=== PATIENT | male | born 1985 | race Caucasian/White ===

== ENCOUNTER 2017-12-29 20:30 | Outpatient (CLI) | payer BC | END 2017-12-29 20:31 | disposition home or self-care (01) | LOC: SLEEPLAB 20:30 | PROVIDERS: ATTEND Family Medicine | DX: G47.10 Hypersomnia, unspecified (principal); R53.83 Other fatigue; R06.83 Snoring; G47.33 Obstructive sleep apnea (adult) (pediatric) | CPT/HCPCS: 95811 ==

== ENCOUNTER 2019-06-27 10:35 | Outpatient (CLI) | payer BC ==
--- NOTE | 2019-06-27 11:25 | ULT ---
Exam: Testicular ultrasound HISTORY: Testicular mass. Right scrotal lump, x2 weeks COMPARISON: None TECHNIQUE: Sagittal and transverse imaging of the left and right hemiscrotum are performed. Testicula r Doppler is performed with grayscale, color-flow, Doppler imaging and spectral waveform analysis. FINDINGS: Right hemiscrotum: Testicle: Homogeneous echotexture. No intratesticular masses. Right testicle measurements: 3.4 x 2.6 x 4.7 cm Right epididymis: Multiple anechoic foci in the right epididymal head compatible with abnormal cysts. Largest cyst appears to be 1.6 x 1.1 x 1.8 cm. Second epididymal cyst measures 1.0 x 0.7 x 0.7 cm. Right epididymis measurements: 1.8 x 1.6 cm Hydrocele: None Left hemiscrotum: Left testicle: Homogeneous echotexture. No intratesticular masses. Left testicle measurements: 2.7 x 4.8 x 3.4 cm Left epididymis: Normal echotexture. Left epididymis measurements:2.1 x 0.8 cm Hydrocele: None There are increased vessels in the left scrotal was has significant change in flow upon Valsalva. Testicular Doppler: There is symmetric vascular flow to the left and right testicle. . IMPRESSION: 1. Left-sided varicoceles 2. Right epididymal cysts.
== END 2019-06-27 10:36 | disposition home or self-care (01) ==
LOC: BICULT 10:35
PROVIDERS: ATTEND Family Medicine
DX: N50.89 Other specified disorders of the male genital organs (principal); I86.1 Scrotal varices; N50.3 Cyst of epididymis
CPT/HCPCS: 76870; 93976

== ENCOUNTER 2020-07-18 00:08 | Inpatient (IN) | payer BC ==
[2020-07-18] MEDS ORDERED: Morphine 4 MG/ML VIAL ONE (00:26)
[2020-07-18] MEDS ORDERED: Ondansetron PF 4 MG/2 ML Vial ONE (00:26)
[2020-07-18 00:32] LABS: #Basophils 0.1 thou/uL (0.0-0.2); #Eosinphils 0.1 thou/uL (0.0-0.7); #Lymphocytes 2.7 thou/uL (1.20-3.40); #Monocytes 0.8 thou/uL (0.11-0.59); #Neutrophils 8.5 thou/uL (1.40-6.50); %Basophils 0.7 % (0.0-1.0); %Eosinophils 1.2 % (0.0-10.0); %Lymphocytes 22.2 % (21.0-51.0); %Monocytes 6.4 % (0.0-10.0); %Neutrophils 69.5 % (42.0-75.0); Hemoglobin 18.3 g/dL (14.0-18.0); Mean Corpuscular HGB CONC 34.5 g/dL (32.0-36.0); Mean Corpuscular Hemoglobin 31.1 pg (27.0-31.0); Mean Corpuscular Volume 90.1 fL (78.0-98.0); Mean Platelet Volume 8.4 fL (7.4-10.4); Platelet Count 270 thou/uL (130-400); RBC Distribution Width 11.5 % (11.5-14.5); Red Blood Cell (RBC) Count 5.89 mill/uL (4.70-6.10); White Blood Cell (WBC) Count 12.2 thou/uL (4.8-10.8)
[2020-07-18 00:52] LABS: ALT (SGPT) 31 U/L (8-55); AST (SGOT) 33 U/L (5-34); Albumin 4.9 g/dL (3.5-5.0); Alkaline Phosphatase 89 U/L (40-110); Anion Gap 15 mmol/L (10-20); BUN (Urea Nitrogen) 13 mg/dL (8.9-20.6); Bilirubin, Total 1.2 mg/dL (0.2-1.2); Calc. Creatinine Clearance 0 mL/min (70-130); Calcium 10.3 mg/dL (7.8-10.44); Carbon Dioxide 30 mmol/L (22-29); Chloride 101 mmol/L (98-107); Estimated GFR-MDRD 56; Globulin 3.2 g/dL (2.4-3.5); Glucose 100 mg/dL (70-105); Lipase 23 U/L (8-78); Potassium 3.9 mmol/L (3.5-5.1); Protein, Total 8.1 g/dL (6.0-8.3); Sodium 142 mmol/L (136-145)
[2020-07-18] MEDS ORDERED: Morphine 4 MG/ML VIAL SLOW IVP PRN (03:31)
[2020-07-18] MEDS ORDERED: Ondansetron PF 4 MG/2 ML Vial IVP PRN (03:31)
[2020-07-18] MEDS ORDERED: Morphine 2 MG/ML VIAL SLOW IVP PRN (03:31)
[2020-07-18] MEDS: Sodium Chloride 0.9% 1,000 ML IV SCH ×3 (04:46→18:26)
[2020-07-18 06:15] VITALS: BMI 29.6
--- NOTE | 2020-07-18 07:53 | CT ---
PRELIMINARY REPORT/[facility]/EMERGENCY AFTER HOURS PROCEDURE: EXAM: CT Abdomen and Pelvis with Intravenous Contrast CLINICAL HISTORY: Pt reports RLQ pain onset 1800 tonight, shortly after eating. Pt also reports nausea and several epis odes of vomiting. Pt states he took "gas medicine", which did not help relieve his symptoms. TECHNIQUE: Axial computed tomography images of the abdomen and pelvis with intravenous contrast. CONTRAST: With; ISOVUE 370, 100mL COMPARISON: None provided. FINDINGS: LUNG BASES: No basilar airspace consolidation or pleural effusion. LIVER: Unremarkable. GALLBLADDER AND BILE DUCTS: Unremarkable. No calcified stone. No ductal dilation. PANCREAS: Unremarkable. SPLEEN: Unremarkable. ADRENAL GLANDS: Unremarkable. KIDNEYS, URETERS, AND BLADDER: Unremarkable. No hydronephrosis or nephrolithiasis. No ureteral or bladder calculi. STOMACH AND BOWEL: There are dilated loops of small bowel measuring up to 2.9 cm with a transition point at the site of anastomotic sutures in the mid abdomen, series 2 image 68. No wall thickening. No CT evidence of col itis or acute diverticulitis. APPENDIX: No CT evidence for appendicitis. PERITONEUM: Small amount of free fluid in the pelvis. No free air. LYMPH NODES: No lymphadenopathy. REPRODUCTIVE: Unremarkable as visualized. VASCULATURE: No aortic aneurysm. BONES: No fracture or suspicious osseous abnormality. ABDOMINAL WALL AND SOFT TISSUES: Unremarkable. IMPRESSION: Multiple dilated loops of small bowel with a transition point in the mid abdomen at the site of anast omotic sutures concerning for an early/mild small bowel obstruction. Clinical correlation is recomme nded. No evidence of acute appendicitis. Small amount of nonspecific free fluid in the pelvis. ELECTRONICALLY SIGNED BY: Nathan Jerome MD Jul 18, 2020 1:08:22 AM NETWORK AND THREAT SUPPORT SPECIALIST This report is intended for review by the ordering physician only, in accordance of law. If you recei ve this report in error, please call [facility] at [phone]. FINAL REPORT EMERGENCY AFTER HOURS CT ABDOMEN AND PELVIS WITH CONTRAST: DATE: 07/18/2020 COMPARISON: 09/12/2012. FINDINGS/IMPRESSION: I agree with the findings and impression given in the preliminary report per [facility] physici an. There are multiple dilated loops of small bowel. A transition point in the left lower quadrant of the abdomen is mentioned at an area of prior anastomosis/stapling. However, this likely represents the p atient's prior resection and the transition point may actually be just below the umbilicus in the mid abdomen rather than in the left lower quadrant of the abdomen. POS: EAA
[2020-07-18] MEDS: Pantoprazole 40 MG VIAL IVP SCH (07:55)
--- NOTE | 2020-07-18 08:18 | RAD ---
EXAM: XR Abdomen 1 View/KUB PROVIDED CLINICAL HISTORY: Abdominal pain COMPARISON: None FINDINGS: Enteric catheter is noted, tip of which overlies lateral left upper quadrant. The abdominal bowel gas pattern is nonspecific. Contrast material seen within nondilated renal collecting systems and ureters. Partially visualized opacified bladder. IMPRESSION: As above.
[2020-07-18] MEDS ORDERED: Cepastat Lozenges 1 LOZ PO PRN (12:28)
[2020-07-18] MEDS ORDERED: Chloraseptic Spray 180 ml Bottle PO PRN (12:29)
[2020-07-18 14:07] LABS: SARS-CoV-2 MS2 Positive; SARS-CoV-2 N Gene Negative; SARS-CoV-2 S Gene Negative; SARS-CoV-2 by NAA Not Detected (NotDetected); SARS-CoV-2 orf1ab Negative
[2020-07-18] MEDS ORDERED: Iopamidol-370 76% 500 ML 1 ML ONE (14:29)
--- NOTE | 2020-07-18 14:29 | HP ---
CHIEF COMPLAINT: Abdominal pain, nausea, and vomiting. HISTORY OF PRESENT ILLNESS: Mr. Sweeney is a 34-year-old man who presented with a several-hour history of abdominal pain, mostly in the right lower quadrant, with nausea and vomiting since the onset of the pain. He has a past surgical history of a laparoscopic small-bowel resection for intussusception, done in [place] in 2012, but is otherwise healthy. He was evaluated in the emergency room where he underwent a CT scan, which revealed a small-bowel obstruction with the transition point below the umbilicus near the surgical anastomosis. He had an NG tube placed with improvement in his abdominal pain and was admitted to the surgical guidry. Since that time, his abdominal pain has relented. He has passed gas and he has not had any nausea. He had normal bowel movement last night before coming into the hospital. He denies fevers, chills, or other symptoms. PAST MEDICAL HISTORY: None. PAST SURGICAL HISTORY: Laparoscopic small-bowel resection for intussusception. No malignancy found. ALLERGIES: NO KNOWN DRUG ALLERGIES. OUTPATIENT MEDICATIONS: None. SOCIAL HISTORY: He does not smoke, drink, or use illicit drugs. FAMILY HISTORY: Hypertension in his father. Colon cancer and another type of cancer in his grandmother who is in her 90s. REVIEW OF SYSTEMS: Ten-system review of systems is negative except per HPI. PHYSICAL EXAMINATION: VITAL SIGNS: The patient has been afebrile since admission, heart rate 76, respirations 18, 97% saturated on room air, and blood pressure 131/82. He was previously hypertensive in the emergency room, but this has resolved without treatment. GENERAL: A healthy-appearing young man, in no acute distress. He is not flushed or toxic. He is not jaundiced or icteric. HEENT: Unremarkable. NECK: Supple without lymphadenopathy or thyroid nodules. HEART: Regular in its rate and rhythm without murmurs, rubs, or gallops. LUNGS: Clear to auscultation bilaterally. ABDOMEN: Soft, nontender, and nondistended with well-healed laparoscopic incisions. No palpable masses or hernias. Bowel sounds are present and normal. EXTREMITIES: Warm and well perfused without edema. NEUROLOGIC: No focal deficits. PSYCHIATRIC: Alert, oriented, and appropriate with normal affect. LABORATORY DATA: White count was mildly elevated on admission at 12.2, hematocrit also mildly elevated at 53, and platelets 270. Electrolytes unremarkable. Creatinine was slightly elevated at 1.44 with a bicarb of 30. LFTs and lipase were normal. CT images are reviewed and I agree with the written report. He does have a transition point just below the umbilicus. I am unable to definitely appreciate a suture line at this area, however. ASSESSMENT: Small-bowel obstruction, which clinically appears to be resolving. He does have an NG tube in place, but there is minimal clear nonbilious output and he is passing gas. I am going to leave him on bowel rest for today and get a Gastrografin small-bowel follow-through tomorrow. If this is normal, then we can start him on a liquid diet and advance this. If this is abnormal, then we will discuss surgery. We will try to get his records from [place]. He thinks that his surgery was at [facility], but he is not a 100% sure. I have ordered Chloraseptic and Cepacol for sore throat associated with the NG tube. The patient and his understand the plan of care. She is scheduled to be induced on Wednesday, and they were reassured that he should still be able to participate and be present for the of his child. Job ID: [id number] MTDD
[2020-07-19] MEDS: Sodium Chloride 0.9% 1,000 ML IV SCH ×2 (00:16→05:33)
[2020-07-19 08:41] LABS: #Eosinphils 0.1 thou/uL (0.0-0.7); #Lymphocytes 1.9 thou/uL (1.20-3.40); #Monocytes 0.7 thou/uL (0.11-0.59); #Neutrophils 6.2 thou/uL (1.40-6.50); %Basophils 0.5 % (0.0-1.0); %Eosinophils 0.9 % (0.0-10.0); %Monocytes 7.8 % (0.0-10.0); %Neutrophils 69.8 % (42.0-75.0); Hemoglobin 17.1 g/dL (14.0-18.0); Mean Corpuscular HGB CONC 34.6 g/dL (32.0-36.0); Mean Corpuscular Hemoglobin 31.8 pg (27.0-31.0); Mean Platelet Volume 8.3 fL (7.4-10.4); Platelet Count 217 thou/uL (130-400); RBC Distribution Width 11.6 % (11.5-14.5); Red Blood Cell (RBC) Count 5.39 mill/uL (4.70-6.10); White Blood Cell (WBC) Count 8.8 thou/uL (4.8-10.8)
[2020-07-19 08:51] LABS: Anion Gap 14 mmol/L (10-20); BUN (Urea Nitrogen) 11 mg/dL (8.9-20.6); Calc. Creatinine Clearance 127 mL/min (70-130); Calcium 9.2 mg/dL (7.8-10.44); Carbon Dioxide 25 mmol/L (22-29); Chloride 106 mmol/L (98-107); Estimated GFR-MDRD 71; Glucose 91 mg/dL (70-105); Potassium 3.9 mmol/L (3.5-5.1); Sodium 141 mmol/L (136-145)
[2020-07-19] MEDS: Pantoprazole 40 MG VIAL IVP SCH (08:51)
--- NOTE | 2020-07-19 12:09 | RAD ---
Exam: Gastrografin small bowel HISTORY: Small bowel obstruction COMPARISON: None FINDINGS: Initial chair maker radiograph demonstrates an air-filled loop of small bowel in the right upper quadrant. Nasogastric tube is noted. There are multiple contrast-filled loops of small bowel. Duodenum is slightly prominent. Contrast passes from the small bowel in the colon as early as 30 michelle brooks. No evidence of high-grade obstruction. On the one-hour image, contrast is noted down to level of rectum IMPRESSION: No high-grade obstruction.
[2020-07-19] MEDS ORDERED: MD-Gastroview 120 ML BOT ONE (15:26)
--- NOTE | 2020-07-19 16:44 | PDOC.GSPN ---
Surgery Progress Note: Subj - Subjective Narrative: Patient feels fine. He is hungry. He has had multiple bowel movements since his small bowel follow-through. He had transit of contrast to the colon in 30 minutes and no definite transition point. Abdomen is soft nondistended nontender. NG tube was removed and he was started on a diet. If he tolerates this will be discharged home later today. Surgery Progress Note: Obj - Vital signs Vital signs: Vital Signs - Most Recent Temp Pulse Resp BP Pulse Ox 98.4 F 76 18 155/82 H 92 L 07/19/20 07:49 07/19/20 07:49 07/19/20 07:49 07/19/20 07:49 07/19/20 07:49 Surgery Progress Note: Results - Labs Result Diagrams: 07/19/20 08:23 07/19/20 08:23 Lab results: Laboratory Results - last 12 hr 07/19/20 07/19/20 08:23 08:23 WBC 8.8 RBC 5.39 Hgb 17.1 Hct 49.6 MCV 92.0 MCH 31.8 H MCHC 34.6 RDW 11.6 Plt Count 217 MPV 8.3 Neutrophils % 69.8 Lymphocytes % 21.0 Monocytes % 7.8 Eosinophils % 0.9 Basophils % 0.5 Neutrophils # 6.2 Lymphocytes # 1.9 Monocytes # 0.7 H Eosinophils # 0.1 Basophils # 0.0 Sodium 141 Potassium 3.9 Chloride 106 Carbon Dioxide 25 Anion Gap 14 BUN 11 Creatinine 1.16 Estimated GFR (MDRD) 71 Glucose 91 Calcium 9.2
[2020-07-19 18:42] VITALS: BP 119/75; TEMP 99.3
== END 2020-07-19 18:44 | disposition home or self-care (01) | DRG 390 ==
LOC: ERS 00:08 → SURG A 01:27
PROVIDERS: ADMIT Surgery; ATTEND Surgery
PROC: 0D9670Z Drainage of Stomach with Drainage Device, Via Natural or Artificial Opening (ICD-10-PCS; principal; 2020-07-18)
DX: K56.609 Unspecified intestinal obstruction, unspecified as to partial versus complete obstruction (principal); Z90.49 Acquired absence of other specified parts of digestive tract; Z20.828 Contact with and (suspected) exposure to other viral communicable diseases
CPT/HCPCS: 36415; 74018; 74177; 74250; 80048; 80053; 83690; 85025; 87635; 96374; 96375; C9113; J2270; J2405; Q9963; Q9967; U0003

== ENCOUNTER 2023-10-07 07:59 | Outpatient (CLI) | payer BC | END 2023-10-07 08:00 | disposition home or self-care (01) | LOC: BICCT 07:59 | PROVIDERS: ATTEND Physician Assistant Medical | DX: R10.31 Right lower quadrant pain (principal); R11.0 Nausea; Z87.19 Personal history of other diseases of the digestive system | CPT/HCPCS: 74177 ==